=== PATIENT | male | born 1990 | race Caucasian/White ===

== ENCOUNTER 2018-10-14 11:50 | Outpatient (CLI) | payer BC ==
--- NOTE | 2018-10-14 12:04 | RAD ---
EXAM: Chest PA and lateral: HISTORY: Pneumonia COMPARISON: none FINDINGS: Lung deal are well aerated. Diffuse interstitial prominence is seen. An interstitial pneumonitis sh ould be excluded. No confluent infiltrate. No effusion. Heart and mediastinum appear unremarkable. Vascularity is normal. Osseous structures are unremarkable. IMPRESSION: Diffuse interstitial thickening. Consider interstitial pneumonitis.
== END 2018-10-14 11:51 | disposition home or self-care (01) ==
LOC: BICRAD 11:50
PROVIDERS: ATTEND Family Medicine
DX: J18.1 Lobar pneumonia, unspecified organism (principal); J98.4 Other disorders of lung
CPT/HCPCS: 71046